=== PATIENT | male | born 1975 | race Two or more races ===

== ENCOUNTER 2025-04-11 23:45 | Emergency (ER) | payer SELFPAY ==
[2025-04-11 23:56] VITALS: BP 152/98; PULSE 92; RESP 18; TEMP 37.1; O2SAT 95
[2025-04-11 23:57] VITALS: BMI 28.1
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
== END 2025-04-12 00:17 ==
PROVIDERS: Emergency Provider Emergency Medicine
DX: Z02.89 Encounter for other administrative examinations (principal); S31.149A Puncture wound of abdominal wall with foreign body, unspecified quadrant without penetration into peritoneal cavity, initial encounter; Y35.833A Legal intervention involving a conducted energy device, suspect injured, initial encounter
CPT/HCPCS: 99283